=== PATIENT | male | born 1950 | race Caucasian/White ===

== ENCOUNTER 2018-03-22 06:36 | Emergency (ER) | payer MEDICARE ==
[2018-03-22] MEDS: PERCOCET 5MG/325MG TAB PO (07:22)
[2018-03-22] MEDS: methylPREDNISolone INJ 125 MG/2 ML VIAL (J2930) IM (07:23)
== END 2018-03-22 08:24 | disposition home or self-care (01) ==
LOC: M ED 06:36
DX: S39.013A Strain of muscle, fascia and tendon of pelvis, initial encounter (principal); X50.1XXA Overexertion from prolonged static or awkward postures, initial encounter; Y92.098 Other place in other non-institutional residence as the place of occurrence of the external cause; M51.37 Other intervertebral disc degeneration, lumbosacral region; M47.817 Spondylosis without myelopathy or radiculopathy, lumbosacral region; M16.12 Unilateral primary osteoarthritis, left hip; Z85.51 Personal history of malignant neoplasm of bladder; E78.00 Pure hypercholesterolemia, unspecified; Z87.891 Personal history of nicotine dependence; Z79.899 Other long term (current) drug therapy
CPT/HCPCS: J2930

== ENCOUNTER 2019-02-26 10:35 | Day surgery (SDC) | payer MEDICARE ==
[~2019-02-26] VITALS: Ht 180.3 cm; Wt 86.2 kg
[~2019-02-26 10:35] MED LIST: ASPI325T; CYCL10TA; FINA5TAB2 PO; FLOM0.4C39 PO; KEFL500C; NAPR-885; NS 1,000 ML IV ONE; PERC5TAB12 PO; PERC7.5T8; PRAV20TA2; PRAV20TA2 PO; PRED20TA PO; PROPOFOL 200 MG/20 ML VIAL As Ordered ONE
[2019-02-26] MEDS ORDERED: LIDOCAINE 2% INJ 100 MG/5 ML SDV (FOR ANES.) As Ordered ONE (12:19)
--- NOTE | 2019-02-26 12:27 | ROOR ---
Patient Name: Elliot Morse Procedure Date: 02/26/2019 12:07 PM Date of : 1950 Age: 68 Room: [facility] Gender: Male Note Status: Finalized Procedure: Colonoscopy Indications: High risk colon cancer surveillance: Personal history of colonic polyps Providers: Frankie Heard Jr, MD Referring MD: Chi Millan MD Requesting Provider: Medicines: Propofol per Anesthesia Complications: No immediate complications. Procedure: Pre-Anesthesia Assessment: - Prior to the procedure, a History and Physical was performed, and patient medications and allergies were reviewed. The patient is competent. The risks and benefits of the procedure and the sedation options and risks were discussed with the patient. All questions were answered and informed consent was obtained. Patient identification and proposed procedure were verified by the physician and the nurse in the pre-procedure area and in the procedure room. Mental Status Examination: alert and oriented. Airway Examination: normal oropharyngeal airway and neck mobility. Respiratory Examination: clear to auscultation. CV Examination: normal. ASA Grade Assessment: II - A patient with mild systemic disease. After reviewing the risks and benefits, the patient was deemed in satisfactory condition to undergo the procedure. The anesthesia plan was to use moderate sedation / analgesia (conscious sedation). Immediately prior to administration of medications, the patient was re-assessed for adequacy to receive sedatives. The heart rate, respiratory rate, oxygen saturations, blood pressure, adequacy of pulmonary ventilation, and response to care were monitored throughout the procedure. The physical status of the patient was re-assessed after the procedure. The Colonoscope was introduced through the anus and advanced to the cecum, identified by appendiceal orifice and ileocecal valve. The colonoscopy was performed without difficulty. The patient tolerated the procedure well. The quality of the bowel preparation was adequate. Findings: The rectum, sigmoid colon, descending colon, transverse colon, ascending colon, cecum and appendiceal orifice appeared normal. Non-bleeding external and internal hemorrhoids were found during retroflexion. The hemorrhoids were Grade II (internal hemorrhoids that prolapse but reduce spontaneously) and Grade III (internal hemorrhoids that prolapse but require manual reduction). Impression: - The rectum, sigmoid colon, descending colon, transverse colon, ascending colon, cecum and appendiceal orifice are normal. - Non-bleeding external and internal hemorrhoids. - No specimens collected. Recommendation: - Discharge patient to home (ambulatory). - Repeat colonoscopy in 5-10 years for screening purposes. Frankie Heard MD Frankie Heard Jr, MD 02/26/2019 12:27:35 PM Electronically signed by Frankie Heard Jr, MD Number of Addenda: 0 Note Initiated On: 02/26/2019 12:07 PM Estimated Blood Loss: Estimated blood loss: none.
[2019-02-26 12:42] VITALS: BP 153/93
== END 2019-02-26 12:52 | disposition home or self-care (01) ==
LOC: M OPP 10:35
PROVIDERS: ATTEND Surgery
DX: Z12.11 Encounter for screening for malignant neoplasm of colon (principal); Z86.010 Personal history of colon polyps; K64.1 Second degree hemorrhoids; K64.2 Third degree hemorrhoids

== ENCOUNTER → 2019-03-20 | Outpatient (REF) | payer MEDICARE ==
[~2019-03-20] MED LIST changes: -NS 1,000 ML IV ONE; -PROPOFOL 200 MG/20 ML VIAL As Ordered ONE
== END ==
LOC: M LAB REF 16:30
PROVIDERS: ATTEND Family Medicine
DX: E07.9 Disorder of thyroid, unspecified (principal)

== ENCOUNTER → 2020-02-24 | Outpatient (REF) | payer MEDICARE | LOC: M LAB REF 12:22 | PROVIDERS: ATTEND Family Medicine | DX: E07.9 Disorder of thyroid, unspecified (principal) ==

== ENCOUNTER → 2020-03-07 | Outpatient (REF) | payer MEDICARE ==
[~2020-03-07] MED LIST changes: +CYCL-707; -CYCL10TA
== END ==
LOC: M SMT 13:22
PROVIDERS: ATTEND Urology
DX: Z85.51 Personal history of malignant neoplasm of bladder (principal)

== ENCOUNTER → 2020-03-28 | Outpatient (CLI) | payer MEDICARE ==
--- NOTE | 2020-03-28 12:29 | REP ---
RIGHT KNEE, FIVE VIEWS: Five views, right knee performed. No acute fracture or dislocation is seen. There is very mild medial joint space narrowing. There is mild patellofemoral compartment narrowing. There is mild diffuse patellar spurring. There is focal calcification in the patellar tendon at the insertion onto the patella. There is a small joint effusion. IMPRESSION: Mild degenerative changes. Small joint effusion. Patellar tendon calcification. Electronically Signed by Ryland Cornelius MD 03/28/2020 12:35 P
== END ==
LOC: M WUC 10:39
PROVIDERS: ATTEND Physician Assistant
DX: M17.11 Unilateral primary osteoarthritis, right knee (principal); M25.461 Effusion, right knee; M22.2X1 Patellofemoral disorders, right knee

== ENCOUNTER → 2020-04-27 | Outpatient (CLI) | payer MEDICARE ==
--- NOTE | 2020-04-27 11:15 | REP ---
THORACIC SPINE: Four AP and lateral views of the thoracic spine are performed. There is no compression fracture or malalignment. There is normal thoracic kyphosis. There is mild to moderate diffuse spurring. There is mild disc space narrowing and subchondral sclerosis at all levels. The posterior elements are intact. IMPRESSION: Mild to moderate diffuse degenerative changes. Electronically Signed by Ryland Cornelius MD 04/27/2020 12:56 P
== END ==
LOC: M WUC 08:30
PROVIDERS: ATTEND Physician Assistant
DX: M51.34 Other intervertebral disc degeneration, thoracic region (principal); S29.012A Strain of muscle and tendon of back wall of thorax, initial encounter

== ENCOUNTER → 2021-05-01 | Outpatient (REF) | payer MEDICARE | LOC: M SMT 13:18 | PROVIDERS: ATTEND Urology | DX: Z85.51 Personal history of malignant neoplasm of bladder (principal) ==

== ENCOUNTER → 2021-11-08 | Outpatient (REF) | LOC: M LABSMTC 13:07 | PROVIDERS: ATTEND Pediatrics | DX: Z20.828 Contact with and (suspected) exposure to other viral communicable diseases (principal) ==

== ENCOUNTER → 2022-06-25 | Outpatient (REF) | payer MEDICARE | LOC: M SMT 10:29 | PROVIDERS: ATTEND Urology | DX: Z85.51 Personal history of malignant neoplasm of bladder (principal) ==

== ENCOUNTER → 2023-01-17 | Outpatient (REF) | payer MEDICARE | LOC: M SFHCDERM 13:36 | PROVIDERS: ATTEND Nurse Practitioner Family | DX: L82.1 Other seborrheic keratosis (principal) ==

== ENCOUNTER → 2023-02-22 | Outpatient (CLI) | payer MEDICARE | LOC: M WUC 09:04 | PROVIDERS: ATTEND Physician Assistant | DX: S39.012A Strain of muscle, fascia and tendon of lower back, initial encounter (principal); M85.88 Other specified disorders of bone density and structure, other site; M47.817 Spondylosis without myelopathy or radiculopathy, lumbosacral region; X58.XXXA Exposure to other specified factors, initial encounter; Y92.9 Unspecified place or not applicable; Y93.9 Activity, unspecified; Y99.9 Unspecified external cause status ==

== ENCOUNTER → 2023-07-01 | Outpatient (REF) | payer MEDICARE | LOC: M SMT 13:06 | PROVIDERS: ATTEND Urology | DX: Z85.51 Personal history of malignant neoplasm of bladder (principal); N32.89 Other specified disorders of bladder ==

== ENCOUNTER → 2024-06-30 | Outpatient (REF) | payer MEDICARE ==
[2024-06-30 18:10] LABS: APPEARANCE, URINE CLEAR (CLEAR); BACTERIA, URINE AUTO NEGATIVE (NEGATIVE); BILIRUBIN, URINE AUTO NEGATIVE (NEGATIVE); BLOOD, URINE BLOOD NEGATIVE (NEGATIVE); COLOR, URINE YELLOW (YELLOW); GLUCOSE, URINE (UA) AUTO NEGATIVE (NEGATIVE); KETONE, URINE AUTO NEGATIVE (NEGATIVE); LEUKOCYTE ESTERASE, URINE AUTO NEGATIVE (NEGATIVE); MUCUS, URINE SMALL (NEGATIVE); NITRITE, URINE AUTO NEGATIVE (NEGATIVE); PROTEIN, URINE AUTO NEGATIVE (NEGATIVE); RBC, URINE AUTO 0 /HPF (0-3); SPECIFIC GRAVITY URINE AUTO 1.016 (1.002-1.035); SQUAMOUS EPITHELIAL CELL UR AU 2 /HPF (0-6); UROBILINOGEN, URINE AUTO 0.2 mg/dL (0.0-2.0); WBC, URINE AUTO 1 /HPF (0-3)
== END ==
LOC: M SMT 17:02
PROVIDERS: ATTEND Urology
DX: Z85.51 Personal history of malignant neoplasm of bladder (principal)

== ENCOUNTER → 2024-07-14 | Outpatient (CLI) | payer MEDICARE ==
[~2024-07-14] MED LIST changes: +LISI20TA35 PO
== END ==
LOC: M ADAMS 13:27
PROVIDERS: ATTEND Family Medicine
DX: Z01.818 Encounter for other preprocedural examination (principal)

== ENCOUNTER → 2024-07-14 | Outpatient (REF) | payer MEDICARE | LOC: M LAB REF 16:15 | PROVIDERS: ATTEND Family Medicine | DX: Z01.818 Encounter for other preprocedural examination (principal); N39.0 Urinary tract infection, site not specified ==

== ENCOUNTER 2024-07-24 10:03 | Day surgery (SDC) | payer MEDICARE ==
[~2024-07-24] VITALS: Ht 177.8 cm; Wt 76.0 kg
[~2024-07-24 10:03] MED LIST changes: +LIDOCAINE 2% 100MG/5ML SDV (FOR ANES.) As Ordered ONE; +ONDANSETRON 4MG 2ML VIAL As Ordered ONE; +fentaNYL 100 MCG/2 ML INJECTION As Ordered ONE; +propofoL 200 MG/20 ML VIAL As Ordered ONE
[2024-07-24] MEDS ORDERED: ACETAMINOPHEN 1000MG 100ML IV BAG As Ordered ONE (11:55)
[2024-07-24] MEDS: ceFAZolin SOD 2 GM in IV 1 EA IV ONE (12:44)
[2024-07-24] MEDS ORDERED: ePHEDrine SULFATE 25 MG/5 ML(5MG/ML) SYRINGE As Ordered ONE (12:59)
[2024-07-24] MEDS ORDERED: ONDANSETRON 4MG 2ML VIAL IV PRN (13:15)
[2024-07-24] MEDS ORDERED: LR 1,000 ML IV SCH (13:15)
[2024-07-24] MEDS ORDERED: fentaNYL 100 MCG/2 ML INJECTION IV PRN (13:15)
[2024-07-24] MEDS ORDERED: BACT800T5 PO (13:38)
[2024-07-24] MEDS ORDERED: ACETAMINOPHEN TAB 650MG DOSE (2X325MG) PO PRN (13:40)
[2024-07-24 14:55] VITALS: BP 167/74; TEMP 98.5; O2SAT 98
== END 2024-07-24 14:55 | disposition home or self-care (01) ==
LOC: M SDC 10:03
PROVIDERS: ATTEND Urology
DX: C67.9 Malignant neoplasm of bladder, unspecified (principal); I10 Essential (primary) hypertension; E78.5 Hyperlipidemia, unspecified; G47.33 Obstructive sleep apnea (adult) (pediatric); Z92.21 Personal history of antineoplastic chemotherapy; N40.0 Benign prostatic hyperplasia without lower urinary tract symptoms; Z79.899 Other long term (current) drug therapy

== ENCOUNTER 2024-07-27 03:18 | Inpatient (IN) | payer MEDICARE ==
[~2024-07-27] VITALS: Ht 180.3 cm; Wt 77.2 kg
[~2024-07-27 03:18] MED LIST changes: +BACT800T5 PO; -LIDOCAINE 2% 100MG/5ML SDV (FOR ANES.) As Ordered ONE; -ONDANSETRON 4MG 2ML VIAL As Ordered ONE; -fentaNYL 100 MCG/2 ML INJECTION As Ordered ONE; -propofoL 200 MG/20 ML VIAL As Ordered ONE
[2024-07-27] MEDS: MORPHINE 4 MG/ML 1ML VIAL IV ONE (04:44)
[2024-07-27] MEDS: ONDANSETRON 4MG 2ML VIAL IV ONE (04:44)
[2024-07-27 05:02] LABS: BASO % 0.3 % (0.0-1.0); EOS # 0.2 10^3/uL (0.0-0.5); EOS % 1.6 % (0.0-3.0); HEMATOCRIT 40.5 % (42.0-52.0); HEMOGLOBIN 14.3 g/dl (13.5-17.5); LYMPH % 7.8 % (24.0-44.0); MEAN CORPUSCULAR HEMOGLOBIN 32.9 pg (27.0-33.0); MEAN CORPUSCULAR HGB CONC 35.3 g/dl (32.0-36.5); MEAN CORPUSCULAR VOLUME 93.3 fl (80.0-96.0); MONO # 0.8 10^3/uL (0.0-0.8); MONO % 6.5 % (2.0-8.0); NEUTROPHILS # 10.2 10^3/uL (1.5-8.5); NEUTROPHILS % 83.1 % (36.0-66.0); PLATELET COUNT, AUTOMATED 154 10^3/uL (150-450); RED BLOOD COUNT 4.34 10^6/uL (4.30-6.10); WHITE BLOOD COUNT 12.2 10^3/uL (4.0-10.0)
[2024-07-27 05:22] LABS: BLOOD UREA NITROGEN 20 MG/DL (9-23); CARBON DIOXIDE LEVEL 27 MMOL/L (20-31); CHLORIDE LEVEL 110 MMOL/L (98-107); CREATININE FOR GFR 1.03 MG/DL (0.70-1.30); GLOMERULAR FILTRATION RATE > 60.0 (>42); GLUCOSE, FASTING 132 MG/DL (74-106); POTASSIUM SERUM 3.5 MMOL/L (3.5-5.1); SODIUM LEVEL 140 MMOL/L (136-145)
[2024-07-27] MEDS ORDERED: ISOVUE-370 76% 100ML VIAL As Ordered ONE (06:11)
[2024-07-27] MEDS: PIPERACILLIN/TAZOBACTAM SOD 3.375 GM in D5W MINI-BAG PLUS 50 ML IV ONE (07:39)
[2024-07-27] MEDS: NS 1,000 ML IV ONE ×2 (07:39→10:04)
[2024-07-27] MEDS: MORPHINE 2 MG/ML 1ML VIAL IV PRN (07:39)
[2024-07-27] MEDS ORDERED: BACTDSTA PO (08:17)
[2024-07-27] MEDS ORDERED: ACET650T61 PO (08:17)
[2024-07-27] MEDS ORDERED: HOME MED LIST COMPLETE! XX SCH (08:20)
[2024-07-27] MEDS ORDERED: HYDROMORPHONE HCL 0.5 MG/ 0.5 ML SYRINGE IV PRN (09:05)
[2024-07-27 09:36] LABS: C REACTIVE PROTEIN QUANTITATIV < 0.40 MG/DL (<1.0)
[2024-07-27 09:50] LABS: PROCALCITONIN 0.09 ng/ml
[2024-07-27] MEDS: HYDROMORPHONE HCL 0.5 MG/ 0.5 ML SYRINGE IV PRN ×2 (09:56→18:18)
[2024-07-27] MEDS: PANTOPRAZOLE 40MG VIAL IV SCH (10:04)
[2024-07-27] MEDS: NS 1,000 ML IV SCH (10:30)
[2024-07-27] MEDS: ONDANSETRON 4MG 2ML VIAL IV PRN (13:53)
[2024-07-27] MEDS: hydrALAZINE 20MG/ML 1ML VIAL IV PRN (13:53)
[2024-07-27] MEDS: PIPERACILLIN/TAZOBACTAM SOD 4.5 GM in D5W MINI-BAG PLUS 50 ML IV SCH (14:21)
[2024-07-27 15:06] VITALS: BP 142/67; TEMP 98.7; O2SAT 97
[2024-07-27] MEDS ORDERED: HYDROmorphone HCL 2MG/ML 1ML VIAL IV PRN (15:10)
[2024-07-27 16:02] VITALS: BP 141/88; TEMP 98.8; O2SAT 96
[2024-07-27 19:21] VITALS: BP 176/78; TEMP 99; O2SAT 97
[2024-07-27 20:35] VITALS: BP 176/92; TEMP 100.3; O2SAT 93
[2024-07-27 23:14] VITALS: BP 160/78; TEMP 99.4; O2SAT 93
[2024-07-28] VITALS (9 sets, daily range): BP systolic 144–164; BP diastolic 72–84; TEMP 97.7–100.3; O2SAT 93–95
[2024-07-28 04:54] LABS: HEMATOCRIT 46.3 % (42.0-52.0); HEMOGLOBIN 16.2 g/dl (13.5-17.5); MEAN CORPUSCULAR HEMOGLOBIN 32.6 pg (27.0-33.0); MEAN CORPUSCULAR VOLUME 93.2 fl (80.0-96.0); PLATELET COUNT, AUTOMATED 191 10^3/uL (150-450); RED BLOOD COUNT 4.97 10^6/uL (4.30-6.10); WHITE BLOOD COUNT 10.4 10^3/uL (4.0-10.0)
[2024-07-28 05:19] LABS: ALBUMIN 2.7 G/DL (3.2-5.2); ALKALINE PHOSPHATASE 48 U/L (46-116); ALT/SGPT 17 U/L (7.0-40); AST/SGOT 11 U/L (<34); BILIRUBIN,TOTAL 1.3 MG/DL (0.3-1.2); BLOOD UREA NITROGEN 26 MG/DL (9-23); CALCIUM LEVEL 8.4 MG/DL (8.3-10.6); CARBON DIOXIDE LEVEL 22 MMOL/L (20-31); CHLORIDE LEVEL 108 MMOL/L (98-107); CREATININE FOR GFR 0.95 MG/DL (0.70-1.30); GLOMERULAR FILTRATION RATE > 60.0 (>42); GLUCOSE, FASTING 166 MG/DL (74-106); POTASSIUM SERUM 3.9 MMOL/L (3.5-5.1); SODIUM LEVEL 138 MMOL/L (136-145); TOTAL PROTEIN 5.5 G/DL (5.7-8.2)
[2024-07-28] MEDS ORDERED: DIATRIZOATE MEGLUMINE 30% 300ML (300MG/ML) CYSTOGRAFIN As Ordered ONE (09:27)
[2024-07-29] VITALS (11 sets, daily range): BP systolic 130–168; BP diastolic 69–90; TEMP 97.6–99.8; O2SAT 91–97
[2024-07-29 05:08] LABS: HEMATOCRIT 39.9 % (42.0-52.0); MEAN CORPUSCULAR HEMOGLOBIN 32.3 pg (27.0-33.0); MEAN CORPUSCULAR HGB CONC 34.3 g/dl (32.0-36.5); MEAN CORPUSCULAR VOLUME 94.1 fl (80.0-96.0); PLATELET COUNT, AUTOMATED 155 10^3/uL (150-450); RED BLOOD COUNT 4.24 10^6/uL (4.30-6.10); WHITE BLOOD COUNT 10.6 10^3/uL (4.0-10.0)
[2024-07-29 05:17] LABS: HEMOGLOBIN 13.7 g/dl (13.5-17.5)
[2024-07-29 05:52] LABS: ALBUMIN 2.1 G/DL (3.2-5.2); ALKALINE PHOSPHATASE 50 U/L (46-116); ALT/SGPT 11 U/L (7.0-40); AST/SGOT 11 U/L (<34); BLOOD UREA NITROGEN 35 MG/DL (9-23); CALCIUM LEVEL 8.6 MG/DL (8.3-10.6); CARBON DIOXIDE LEVEL 24 MMOL/L (20-31); CHLORIDE LEVEL 111 MMOL/L (98-107); CREATININE FOR GFR 0.96 MG/DL (0.70-1.30); GLOMERULAR FILTRATION RATE > 60.0 (>42); GLUCOSE, FASTING 116 MG/DL (74-106); POTASSIUM SERUM 3.8 MMOL/L (3.5-5.1); SODIUM LEVEL 141 MMOL/L (136-145); TOTAL PROTEIN 4.9 G/DL (5.7-8.2)
[2024-07-29] MEDS: GASTROGRAFIN SOLUTION 30ML PO SCH (06:03)
[2024-07-29] MEDS ORDERED: fentaNYL 100 MCG/2 ML INJECTION As Ordered ONE (13:42)
[2024-07-29] MEDS ORDERED: ACETAMINOPHEN 1000MG 100ML IV BAG As Ordered ONE (13:42)
[2024-07-29] MEDS ORDERED: propofoL 200 MG/20 ML VIAL As Ordered ONE (13:42)
[2024-07-29] MEDS ORDERED: KETOROLAC 60MG 2ML VIAL As Ordered ONE (13:42)
[2024-07-29] MEDS ORDERED: MIDAZOLAM INJ 2MG/2ML VIAL As Ordered ONE (13:42)
[2024-07-29] MEDS ORDERED: SUGAMMADEX SODIUM 500 MG/5 ML VIAL (BRIDION) As Ordered ONE (13:42)
[2024-07-29] MEDS ORDERED: HYDROmorphone HCL 2MG/ML 1ML VIAL As Ordered ONE (13:42)
[2024-07-29] MEDS ORDERED: ROCURONIUM BROMIDE 50MG/5ML VIAL As Ordered ONE (13:42)
[2024-07-29] MEDS ORDERED: ONDANSETRON 4MG 2ML VIAL As Ordered ONE (13:42)
[2024-07-29] MEDS ORDERED: LIDOCAINE 2% 100MG/5ML SDV (FOR ANES.) As Ordered ONE (13:42)
[2024-07-29] MEDS ORDERED: LABETALOL 100MG/20ML VIAL As Ordered ONE (13:54)
[2024-07-29] MEDS: ZOSYN 3.375GM VIAL As Ordered ONE (15:00)
[2024-07-29] MEDS: LIDOCAINE 1% SDV 30ML VIAL As Ordered ONE (15:14)
[2024-07-30] VITALS (9 sets, daily range): BP systolic 131–190; BP diastolic 70–100; TEMP 97.6–99.5; O2SAT 92–97
[2024-07-30] MEDS: KETOROLAC 30 MG/ML 1ML VIAL IV SCH (00:25)
[2024-07-30] MEDS ORDERED: MORPHINE 4 MG/ML 1ML VIAL IV PRN (07:20)
[2024-07-30 07:21] LABS: HEMATOCRIT 36.6 % (42.0-52.0); HEMOGLOBIN 12.5 g/dl (13.5-17.5); MEAN CORPUSCULAR HEMOGLOBIN 32.2 pg (27.0-33.0); MEAN CORPUSCULAR HGB CONC 34.2 g/dl (32.0-36.5); MEAN CORPUSCULAR VOLUME 94.3 fl (80.0-96.0); PLATELET COUNT, AUTOMATED 157 10^3/uL (150-450); RED BLOOD COUNT 3.88 10^6/uL (4.30-6.10); WHITE BLOOD COUNT 11.6 10^3/uL (4.0-10.0)
[2024-07-30 07:44] LABS: ALBUMIN 1.6 G/DL (3.2-5.2); ALKALINE PHOSPHATASE 46 U/L (46-116); ALT/SGPT 13 U/L (7.0-40); AST/SGOT 18 U/L (<34); BILIRUBIN,TOTAL 0.6 MG/DL (0.3-1.2); BLOOD UREA NITROGEN 37 MG/DL (9-23); CALCIUM LEVEL 7.8 MG/DL (8.3-10.6); CARBON DIOXIDE LEVEL 27 MMOL/L (20-31); CHLORIDE LEVEL 112 MMOL/L (98-107); CREATININE FOR GFR 0.98 MG/DL (0.70-1.30); GLOMERULAR FILTRATION RATE > 60.0 (>42); GLUCOSE, FASTING 133 MG/DL (74-106); POTASSIUM SERUM 3.7 MMOL/L (3.5-5.1); SODIUM LEVEL 143 MMOL/L (136-145); TOTAL PROTEIN 4.3 G/DL (5.7-8.2)
[2024-07-30] MEDS: hydrALAZINE 20MG/ML 1ML VIAL IV PRN (17:36)
[2024-07-30] MEDS: MORPHINE 2 MG/ML 1ML VIAL IV PRN (23:32)
[2024-07-31] VITALS (13 sets, daily range): BP systolic 154–184; BP diastolic 68–90; TEMP 98–99.7; O2SAT 94–97
[2024-07-31 06:09] LABS: HEMATOCRIT 36.1 % (42.0-52.0); HEMOGLOBIN 12.6 g/dl (13.5-17.5); MEAN CORPUSCULAR HEMOGLOBIN 32.8 pg (27.0-33.0); MEAN CORPUSCULAR HGB CONC 34.9 g/dl (32.0-36.5); PLATELET COUNT, AUTOMATED 160 10^3/uL (150-450); RED BLOOD COUNT 3.84 10^6/uL (4.30-6.10); WHITE BLOOD COUNT 14.7 10^3/uL (4.0-10.0)
[2024-07-31 06:40] LABS: ALBUMIN 1.7 G/DL (3.2-5.2); ALKALINE PHOSPHATASE 63 U/L (46-116); ALT/SGPT 17 U/L (7.0-40); AST/SGOT 22 U/L (<34); BILIRUBIN,TOTAL 0.7 MG/DL (0.3-1.2); BLOOD UREA NITROGEN 33 MG/DL (9-23); CALCIUM LEVEL 7.5 MG/DL (8.3-10.6); CARBON DIOXIDE LEVEL 25 MMOL/L (20-31); CHLORIDE LEVEL 113 MMOL/L (98-107); CREATININE FOR GFR 0.86 MG/DL (0.70-1.30); GLOMERULAR FILTRATION RATE > 60.0 (>42); GLUCOSE, FASTING 91 MG/DL (74-106); POTASSIUM SERUM 3.3 MMOL/L (3.5-5.1); SODIUM LEVEL 144 MMOL/L (136-145); TOTAL PROTEIN 4.5 G/DL (5.7-8.2)
[2024-07-31] MEDS: KCL 10MEQ/100ML SWI (KRUN) 10 MEQ in IV 1 EA IV SCH (10:43)
[2024-07-31] MEDS: ENOXAPARIN 40MG/0.4ML SYRINGE (J1650 PER 10MG) SC SCH (15:48)
[2024-07-31] MEDS: KCL 10MEQ/100ML SWI (KRUN) 10 MEQ in IV 1 EA IV ONE (16:51)
[2024-08-01] VITALS (10 sets, daily range): BP systolic 148–183; BP diastolic 60–85; TEMP 97.8–100.5; O2SAT 95–96
[2024-08-01 04:48] LABS: HEMATOCRIT 37.6 % (42.0-52.0); HEMOGLOBIN 12.6 g/dl (13.5-17.5); MEAN CORPUSCULAR HEMOGLOBIN 31.6 pg (27.0-33.0); MEAN CORPUSCULAR HGB CONC 33.5 g/dl (32.0-36.5); MEAN CORPUSCULAR VOLUME 94.2 fl (80.0-96.0); PLATELET COUNT, AUTOMATED 164 10^3/uL (150-450); RED BLOOD COUNT 3.99 10^6/uL (4.30-6.10); WHITE BLOOD COUNT 11.9 10^3/uL (4.0-10.0)
[2024-08-01 05:21] LABS: ALBUMIN 1.7 G/DL (3.2-5.2); ALKALINE PHOSPHATASE 67 U/L (46-116); ALT/SGPT 23 U/L (7.0-40); AST/SGOT 31 U/L (<34); BLOOD UREA NITROGEN 27 MG/DL (9-23); CALCIUM LEVEL 7.8 MG/DL (8.3-10.6); CARBON DIOXIDE LEVEL 26 MMOL/L (20-31); CHLORIDE LEVEL 112 MMOL/L (98-107); CREATININE FOR GFR 0.79 MG/DL (0.70-1.30); GLOMERULAR FILTRATION RATE > 60.0 (>42); GLUCOSE, FASTING 107 MG/DL (74-106); POTASSIUM SERUM 3.4 MMOL/L (3.5-5.1); SODIUM LEVEL 143 MMOL/L (136-145); TOTAL PROTEIN 4.8 G/DL (5.7-8.2)
[2024-08-01] MEDS ORDERED: PERCOCET 5MG/325MG TAB PO PRN (08:55)
[2024-08-01] MEDS: hydroCHLOROthiazide 12.5 MG CAPSULE PO SCH (09:38)
[2024-08-01] MEDS: FINASTERIDE 5MG TAB PO SCH (09:39)
[2024-08-01] MEDS: PRAVASTATIN 20 MG TAB PO SCH (09:39)
[2024-08-01] MEDS: OMEPRAZOLE 20MG CAP PO SCH (09:39)
[2024-08-01] MEDS: POTASSIUM CHLORIDE 10MEQ SR TABLET PO ONE ×2 (15:28→17:20)
[2024-08-01] MEDS: AMPICILLIN SOD 2 GM in D5W MINI-BAG PLUS 100 ML IV SCH (17:20)
[2024-08-01] MEDS: LACTOBACILLUS ACIDOPHILUS CAP (BACID) PO SCH (17:24)
[2024-08-01] MEDS: traMADol 50 MG TAB PO PRN (17:25)
[2024-08-01] MEDS: FUROSEMIDE 20MG/2ML VIAL IV ONE (18:34)
[2024-08-01] MEDS: TAMSULOSIN 0.4 MG CAP PO SCH (20:30)
[2024-08-01] MEDS: RAMELTEON 8 MG TAB (ROZEREM) PO ONE (22:39)
[2024-08-02] VITALS (8 sets, daily range): BP systolic 138–178; BP diastolic 62–84; TEMP 98.3–99.5; O2SAT 94–97
[2024-08-02 05:04] LABS: HEMATOCRIT 36.9 % (42.0-52.0); HEMOGLOBIN 12.5 g/dl (13.5-17.5); MEAN CORPUSCULAR HEMOGLOBIN 31.6 pg (27.0-33.0); MEAN CORPUSCULAR HGB CONC 33.9 g/dl (32.0-36.5); MEAN CORPUSCULAR VOLUME 93.4 fl (80.0-96.0); PLATELET COUNT, AUTOMATED 210 10^3/uL (150-450); RED BLOOD COUNT 3.95 10^6/uL (4.30-6.10); WHITE BLOOD COUNT 13.4 10^3/uL (4.0-10.0)
[2024-08-02 05:28] LABS: ALBUMIN 1.7 G/DL (3.2-5.2); ALKALINE PHOSPHATASE 70 U/L (46-116); ALT/SGPT 44 U/L (7.0-40); AST/SGOT 41 U/L (<34); BILIRUBIN,TOTAL 0.8 MG/DL (0.3-1.2); BLOOD UREA NITROGEN 20 MG/DL (9-23); CALCIUM LEVEL 7.4 MG/DL (8.3-10.6); CARBON DIOXIDE LEVEL 26 MMOL/L (20-31); CHLORIDE LEVEL 107 MMOL/L (98-107); CREATININE FOR GFR 0.76 MG/DL (0.70-1.30); GLOMERULAR FILTRATION RATE > 60.0 (>42); GLUCOSE, FASTING 122 MG/DL (74-106); POTASSIUM SERUM 3.1 MMOL/L (3.5-5.1); SODIUM LEVEL 139 MMOL/L (136-145); TOTAL PROTEIN 4.8 G/DL (5.7-8.2)
[2024-08-02] MEDS: POTASSIUM CHLORIDE 10MEQ SR TABLET PO ONE (05:52)
[2024-08-02] MEDS: KCL 10MEQ/100ML SWI (KRUN) 10 MEQ in IV 1 EA IV SCH (05:53)
[2024-08-02] MEDS: FUROSEMIDE 40MG/4ML VIAL IV ONE (08:55)
[2024-08-02] MEDS: ACETAMINOPHEN 650MG ER TAB (TYLENOL ARTHRITIS) PO PRN (10:25)
[2024-08-02 12:37] LABS: BLOOD UREA NITROGEN 20 MG/DL (9-23); CARBON DIOXIDE LEVEL 26 MMOL/L (20-31); CHLORIDE LEVEL 108 MMOL/L (98-107); CREATININE FOR GFR 0.81 MG/DL (0.70-1.30); GLOMERULAR FILTRATION RATE > 60.0 (>42); GLUCOSE, FASTING 152 MG/DL (74-106); POTASSIUM SERUM 3.4 MMOL/L (3.5-5.1); SODIUM LEVEL 140 MMOL/L (136-145)
[2024-08-02] MEDS: POTASSIUM CHLORIDE 10% LIQ 20MEQ/15ML UDC PO SCH (18:43)
[2024-08-02] MEDS: RAMELTEON 8 MG TAB (ROZEREM) PO PRN (23:47)
[2024-08-03 04:07] VITALS: BP 144/68; TEMP 98.4; O2SAT 96
[2024-08-03 06:43] LABS: HEMATOCRIT 33.9 % (42.0-52.0); HEMOGLOBIN 11.9 g/dl (13.5-17.5); MEAN CORPUSCULAR HEMOGLOBIN 32.6 pg (27.0-33.0); MEAN CORPUSCULAR HGB CONC 35.1 g/dl (32.0-36.5); MEAN CORPUSCULAR VOLUME 92.9 fl (80.0-96.0); PLATELET COUNT, AUTOMATED 226 10^3/uL (150-450); RED BLOOD COUNT 3.65 10^6/uL (4.30-6.10); WHITE BLOOD COUNT 12.6 10^3/uL (4.0-10.0)
[2024-08-03 07:13] LABS: ALBUMIN 1.7 G/DL (3.2-5.2); ALKALINE PHOSPHATASE 60 U/L (46-116); ALT/SGPT 48 U/L (7.0-40); AST/SGOT 41 U/L (<34); BILIRUBIN,TOTAL 0.7 MG/DL (0.3-1.2); BLOOD UREA NITROGEN 21 MG/DL (9-23); CALCIUM LEVEL 7.6 MG/DL (8.3-10.6); CARBON DIOXIDE LEVEL 26 MMOL/L (20-31); CHLORIDE LEVEL 107 MMOL/L (98-107); CREATININE FOR GFR 0.74 MG/DL (0.70-1.30); GLOMERULAR FILTRATION RATE > 60.0 (>42); GLUCOSE, FASTING 122 MG/DL (74-106); POTASSIUM SERUM 3.6 MMOL/L (3.5-5.1); SODIUM LEVEL 138 MMOL/L (136-145); TOTAL PROTEIN 4.7 G/DL (5.7-8.2)
[2024-08-03 08:00] VITALS: BP 172/82; TEMP 98.5; O2SAT 93
[2024-08-03] MEDS: FUROSEMIDE 40MG/4ML VIAL IV ONE (08:38)
[2024-08-03 12:00] VITALS: BP 140/79; TEMP 99; O2SAT 93
[2024-08-03 15:45] VITALS: BP 184/90; TEMP 99; O2SAT 94
[2024-08-03] MEDS: **hydrALAZINE** 10 MG TAB PO ONE (15:58)
[2024-08-03 17:57] VITALS: BP 166/84
[2024-08-03 19:50] VITALS: BP 158/70; TEMP 97.8; O2SAT 94
[2024-08-04 00:10] VITALS: BP 171/78; TEMP 98.4; O2SAT 94
[2024-08-04 04:47] VITALS: BP 174/72; TEMP 98; O2SAT 92
[2024-08-04 06:04] LABS: HEMATOCRIT 35.4 % (42.0-52.0); HEMOGLOBIN 12.3 g/dl (13.5-17.5); MEAN CORPUSCULAR HEMOGLOBIN 32.2 pg (27.0-33.0); MEAN CORPUSCULAR HGB CONC 34.7 g/dl (32.0-36.5); MEAN CORPUSCULAR VOLUME 92.7 fl (80.0-96.0); PLATELET COUNT, AUTOMATED 294 10^3/uL (150-450); RED BLOOD COUNT 3.82 10^6/uL (4.30-6.10)
[2024-08-04 06:23] LABS: ALBUMIN 1.8 G/DL (3.2-5.2); ALKALINE PHOSPHATASE 56 U/L (46-116); ALT/SGPT 42 U/L (7.0-40); AST/SGOT 27 U/L (<34); BILIRUBIN,TOTAL 0.7 MG/DL (0.3-1.2); BLOOD UREA NITROGEN 18 MG/DL (9-23); CALCIUM LEVEL 7.6 MG/DL (8.3-10.6); CARBON DIOXIDE LEVEL 27 MMOL/L (20-31); CHLORIDE LEVEL 104 MMOL/L (98-107); CREATININE FOR GFR 0.73 MG/DL (0.70-1.30); GLOMERULAR FILTRATION RATE > 60.0 (>42); GLUCOSE, FASTING 124 MG/DL (74-106); POTASSIUM SERUM 3.4 MMOL/L (3.5-5.1); SODIUM LEVEL 135 MMOL/L (136-145); TOTAL PROTEIN 4.9 G/DL (5.7-8.2)
[2024-08-04 08:00] VITALS: BP 121/72; TEMP 97.6; O2SAT 95
[2024-08-04] MEDS: POTASSIUM CHLORIDE 10MEQ SR TABLET PO ONE (08:24)
[2024-08-04 08:25] VITALS: BP 161/80
[2024-08-04] MEDS: lisinopriL 40MG TAB PO SCH (08:25)
[2024-08-04] MEDS ORDERED: RISATAB3 PO (11:29)
[2024-08-04] MEDS ORDERED: AMOX875T2 PO (11:29)
[2024-08-04] MEDS ORDERED: TRAM50TA2 PO (11:33)
== END 2024-08-04 12:25 | disposition home or self-care (01) | DRG 329 ==
LOC: M ED 03:18 → M ED INP 09:04 → M PCU 14:51 → M MS5PR 08-03 15:22
PROVIDERS: ADMIT Internal Medicine; ATTEND Internal Medicine Nephrology
PROC: 0DB80ZZ Excision of Small Intestine, Open Approach (ICD-10-PCS; principal; 2024-07-29 11:00)
DX: K63.1 Perforation of intestine (nontraumatic) (principal); K65.1 Peritoneal abscess; A41.9 Sepsis, unspecified organism; K56.7 Ileus, unspecified; K52.9 Noninfective gastroenteritis and colitis, unspecified; I10 Essential (primary) hypertension; E78.5 Hyperlipidemia, unspecified; N40.0 Benign prostatic hyperplasia without lower urinary tract symptoms; Z53.31 Laparoscopic surgical procedure converted to open procedure; Z79.899 Other long term (current) drug therapy

== ENCOUNTER → 2024-10-21 | Outpatient (CLI) | payer MEDICARE ==
[~2024-10-21] MED LIST changes: +ACET650T61 PO; +AMOX875T2 PO; +BACTDSTA PO; +RISATAB3 PO; +TRAM50TA2 PO
== END ==
LOC: M RAD 07:01
PROVIDERS: ATTEND Family Medicine
DX: R51.9 Headache, unspecified (principal)

== ENCOUNTER → 2025-02-01 | Outpatient (REF) | payer MEDICARE ==
[2025-02-01 18:48] LABS: BLOOD UREA NITROGEN 23 MG/DL (9-23); CREATININE FOR GFR 0.93 MG/DL (0.70-1.30); GLOMERULAR FILTRATION RATE > 60.0 (>42)
== END ==
LOC: M LABWUC 16:48
PROVIDERS: ATTEND Surgery
DX: K43.2 Incisional hernia without obstruction or gangrene (principal)

== ENCOUNTER → 2025-02-08 | Outpatient (CLI) | payer MEDICARE ==
[~2025-02-08] MED LIST changes: +ISOVUE-370 76% 100ML VIAL As Ordered ONE
== END ==
LOC: M RAD 09:25
PROVIDERS: ATTEND Surgery
DX: K43.2 Incisional hernia without obstruction or gangrene (principal); N20.0 Calculus of kidney; N28.1 Cyst of kidney, acquired
CPT/HCPCS: 74177; Q9967

== ENCOUNTER 2025-04-08 07:09 | Day surgery (SDC) | payer MEDICARE ==
[~2025-04-08] VITALS: Ht 177.8 cm; Wt 77.3 kg
[~2025-04-08 07:09] MED LIST changes: -FLOM0.4C39 PO; -ISOVUE-370 76% 100ML VIAL As Ordered ONE; +TAMS-18 PO
[2025-04-08] MEDS ORDERED: LR 1,000 ML IV SCH (07:20)
[2025-04-08] MEDS ORDERED: MELA5CAP2 PO (07:51)
[2025-04-08] MEDS ORDERED: ACETAMINOPHEN 1000MG/100ML IV BAG As Ordered ONE (08:10)
[2025-04-08] MEDS ORDERED: ONDANSETRON 4MG 2ML VIAL As Ordered ONE (08:10)
[2025-04-08] MEDS ORDERED: LIDOCAINE 2% 100MG/5ML SDV (FOR ANES.) As Ordered ONE (08:10)
[2025-04-08] MEDS ORDERED: fentaNYL 100 MCG/2 ML INJECTION As Ordered ONE (08:11)
[2025-04-08] MEDS: BOTOX THERAPEUTIC 100 UNIT VIAL As Ordered ONE (09:07)
[2025-04-08 09:32] VITALS: BP 115/56; TEMP 98; O2SAT 98
== END 2025-04-08 10:05 | disposition home or self-care (01) ==
LOC: M SDC 07:09
PROVIDERS: ATTEND Surgery
DX: K43.2 Incisional hernia without obstruction or gangrene (principal); I10 Essential (primary) hypertension; E78.00 Pure hypercholesterolemia, unspecified; N40.0 Benign prostatic hyperplasia without lower urinary tract symptoms; G47.30 Sleep apnea, unspecified; Z79.899 Other long term (current) drug therapy; Z85.51 Personal history of malignant neoplasm of bladder; Z92.21 Personal history of antineoplastic chemotherapy; Z90.89 Acquired absence of other organs
CPT/HCPCS: 64646; J0131; J0585; J0665; J1100; J2405; J3010

== ENCOUNTER → 2025-08-17 | Outpatient (REF) | payer MEDICARE ==
[~2025-08-17] MED LIST changes: +CELE1CAP4 PO; +MELA5CAP2 PO; +PERCOCET PO; -PRAV20TA2 PO; +PRAV20TA78 PO
== END ==
LOC: M SMT 12:53
PROVIDERS: ATTEND Urology
DX: C67.9 Malignant neoplasm of bladder, unspecified (principal)

== ENCOUNTER → 2025-09-03 | Outpatient (REF) | payer MEDICARE | LOC: M LAB REF 11:57 | PROVIDERS: ATTEND Family Medicine | DX: E07.9 Disorder of thyroid, unspecified (principal) ==

== ENCOUNTER 2025-10-06 01:28 | Emergency (ER) | payer MEDICARE ==
[~2025-10-06] VITALS: Ht 180.3 cm; Wt 77.3 kg
[2025-10-06 01:30] VITALS: TEMP 97.9
[2025-10-06 01:57] LABS: BASO # 0.1 10^3/uL (0.0-0.2); BASO % 0.8 % (0.0-1.0); EOS # 0.3 10^3/uL (0.0-0.5); EOS % 3.5 % (0.0-3.0); LYMPH # 1.7 10^3/uL (1.5-5.0); LYMPH % 23.3 % (24.0-44.0); MONO # 0.7 10^3/uL (0.0-0.8); MONO % 9.5 % (2.0-8.0); NEUTROPHILS # 4.6 10^3/uL (1.5-8.5); NEUTROPHILS % 62.5 % (36.0-66.0); PLATELET COUNT, AUTOMATED 168 10^3/uL (150-450)
[2025-10-06 02:22] LABS: CALCIUM LEVEL 8.6 MG/DL (8.3-10.6); CARBON DIOXIDE LEVEL 29.0 MMOL/L (20-31); CHLORIDE LEVEL 105.0 MMOL/L (98-107); CK-MB VALUE MASS 1.9 NG/ML (<3.6); CREATININE FOR GFR 0.95 MG/DL (0.70-1.30); GLOMERULAR FILTRATION RATE 82.4 (>42); POTASSIUM SERUM 4.0 MMOL/L (3.5-5.1); SODIUM LEVEL 141.0 MMOL/L (136-145)
[2025-10-06 02:25] LABS: CPK CREATINE PHOSPHOKINASE 131.0 U/L (46-171); MB/CK RELATIVE INDEX 1.45 (< OR =4)
[2025-10-06 03:30] VITALS: BP 148/76
[2025-10-06 04:15] LABS: CK-MB VALUE MASS 2.0 NG/ML (<3.6); CPK CREATINE PHOSPHOKINASE 116.0 U/L (46-171); MB/CK RELATIVE INDEX 1.72 (< OR =4)
[2025-10-06] MEDS: KETOROLAC 30 MG/ML 1 ML VIAL IV ONE (04:22)
[2025-10-06] MEDS ORDERED: ISOVUE-370 76% 100 ML VIAL As Ordered ONE (04:24)
[2025-10-06 05:00] VITALS: O2SAT 99
== END 2025-10-06 05:55 | disposition home or self-care (01) ==
LOC: M ED 01:28
DX: R07.9 Chest pain, unspecified (principal); I44.4 Left anterior fascicular block; N40.0 Benign prostatic hyperplasia without lower urinary tract symptoms; G47.33 Obstructive sleep apnea (adult) (pediatric); Z79.1 Long term (current) use of non-steroidal anti-inflammatories (NSAID); Z79.899 Other long term (current) drug therapy
CPT/HCPCS: 71045; 71275; 80048; 82550; 82553; 84484; 85025; 85379; 93005; 96374; 99284; J1885; Q9967

== ENCOUNTER → 2025-10-13 | Outpatient (CLI) | payer MEDICARE ==
[~2025-10-13] MED LIST changes: +ISOVUE-370 76% 100 ML VIAL As Ordered ONE
== END ==
LOC: M RAD 15:44
PROVIDERS: ATTEND Surgery
DX: R10.9 Unspecified abdominal pain (principal); J98.11 Atelectasis; I31.39 Other pericardial effusion (noninflammatory); N28.1 Cyst of kidney, acquired; N20.0 Calculus of kidney; K57.30 Diverticulosis of large intestine without perforation or abscess without bleeding; N40.0 Benign prostatic hyperplasia without lower urinary tract symptoms; N42.0 Calculus of prostate; I70.0 Atherosclerosis of aorta
CPT/HCPCS: 74177; Q9967